=== PATIENT | male | born 1960 | race Caucasian/White ===

== ENCOUNTER 2023-08-27 09:58 | Outpatient (RCR) | payer OTHER, SELFPAY ==
--- NOTE | 2023-10-07 11:05 | HP.OTEVAL ---
Patient's Visit Information Visit Information Visit Information: ILA DAI is a 63 year old M, referred to Occupational Therapy by JORDAN Leigh, with a diagnosis of EPL laceration. Date of Evaluation: 08/27/23 Occupational Therapist: Norma Whitehead, CUONGR/L, CHT Subjective Subjective: pt arrives for custom orthosis following a left EPL tendon laceration with repair. DOI was June DOS was August 07 2023 undergoing tendon repair about 3 weeks following injury so he could go on vacation. pt arrives to day for order for custom orthosis and then will cont. therapy closer to home. Sensation Sensation Comments: denies Quick DASH-Disab of Arm,Shoulder& Hand Quick DASH Score: [id number] Goals Goal:100% adherence to protocol: Yes Goal:Daily scar massage when approriate: Yes Goal:ROM equal to unaffected hand: Yes Goal:Recoil Spring Winder/Pinch strength at least 75% of unaffected hand: Yes Goal:No pain with affected hand use: Yes Other Goal: orthosis use by end of 1st session. Rehabilitation General Assessment: pt arrives 2 weeks and 6 days s/p from a EPL tendon repair :arrives for custom orthosis only- going to have formal OT services closer to home. Therapist dariana. custom orthosis - ed. on use and precautions. pt demo understanding and agree to dariana. and POC. Rehabilitation Potential: Good Anticipated Interventions Anticipated Interventions: Orthoses Visit Plan General Plan: pt for custom orthosis dariana. only- having therapy closer to home. TEXT: Thank you for the opportunity to evaluate your patient. For Medicare and Medicare HMO plans, please review the plan of care and approve it. It will need to be FAXED BACK to us at [phone] for Medicare purposes. Please let me know if there are questions or concerns regarding this plan of care. Physician Signature: Date:
--- NOTE | 2023-10-07 11:06 | HP.OT.NRP ---
Patient Information Patient Information: ILA DAI was seen in my office for initial evaluation on 08/27/23. The following Plan of Care was established for this patient: Anticipated Interventions Anticipated Interventions: Orthoses Other Interventions: orthosis dariana. pt to cont. therapy closer to home. Last Seen Last Seen: This patient was last seen in our office . Pertinent comments regarding their Occupational therapy will appear below: At this point I will be discontinuing this patient from occupational therapy. I would be happy to see this patient again in the future if found appropriate by the physician. Thank you! Norma Whitehead, OTR/L, CHT
== END 2023-08-27 19:00 | disposition home or self-care (01) ==
LOC: OT 09:58
PROVIDERS: Referring Provider Physician Assistant Surgical; Visit Provider Physician Assistant Surgical
DX: S66.222D Laceration of extensor muscle, fascia and tendon of left thumb at wrist and hand level, subsequent encounter (principal)
CPT/HCPCS: 97165; 97760